=== PATIENT | female | born 1990 | race Caucasian/White ===

== ENCOUNTER 2019-04-30 10:29 | Emergency (ER) | payer MEDICAID ==
[~2019-04-30] VITALS: Ht 170.2 cm; Wt 90.7 kg
[2019-04-30 10:55] VITALS: BP_SYST 150
[2019-04-30 11:31] LABS: BASOPHILS # (AUTO) 0.1 K/uL (0.0-0.2); BASOPHILS % (AUTO) 1.6 % (0.0-2.0); EOSINOPHILS # (AUTO) 0.1 K/uL (0.0-0.4); EOSINOPHILS % (AUTO) 3.1 % (0.0-4.0); HEMATOCRIT 36.8 % (36-48); HEMOGLOBIN 11.8 g/dL (12.0-16.0); LYMPHOCYTES # (AUTO) 1.8 K/uL (1.0-5.5); LYMPHOCYTES % (AUTO) 41.8 % (20.5-51.5); MEAN CORPUSCULAR HEMOGLOBIN 26 pg (27-31); MEAN CORPUSCULAR HGB CONC 32 % (32-36); MEAN CORPUSCULAR VOLUME 80 fL (79.0-98.0); MONOCYTES # (AUTO) 0.3 K/uL (0.0-1.0); NEUTROPHILS # (AUTO) 2.1 K/uL (1.8-7.7); NEUTROPHILS % (AUTO) 47.5 % (40.0-70.0); PLATELET COUNT (AUTO) 330 K/uL (130-430); RED CELL DISTRIBUTION WIDTH 17.1 % (9.0-15.0); WHITE BLOOD COUNT (AUTO) 4.4 K/uL (4.8-10.8)
[2019-04-30 11:50] LABS: CALCIUM 8.7 mg/dL (8.4-11.0); CREATININE 0.8 mg/dL (0.55-1.30); POTASSIUM 3.8 mmol/L (3.5-5.1)
[2019-04-30 11:55] LABS: ALBUMIN 3.2 g/dL (3.4-4.8); TOTAL BILIRUBIN 0.3 mg/dL (0.0-1.0)
[2019-04-30 12:39] VITALS: BP_SYST 142
== END 2019-04-30 12:39 | disposition home or self-care (01) ==
LOC: SED 10:29
DX: K29.70 Gastritis, unspecified, without bleeding (principal); R11.2 Nausea with vomiting, unspecified; I10 Essential (primary) hypertension; Z76.0 Encounter for issue of repeat prescription
CPT/HCPCS: 36415; 80053; 81025; 83690-TC; 85025; 99283